=== PATIENT | male | born 1955 | race Caucasian/White ===

== ENCOUNTER 2017-03-21 19:25 | Inpatient (IN) | payer OTHER ==
[2017-03-21] MEDS: CEFTRIAXONE 1 GM/50 ML (PMX) 50 ML IVPB (22:03)
[2017-03-21] MEDS: IBUPROFEN 600 MG TAB PO (22:03)
[2017-03-21] MEDS: SODIUM CHLORIDE 0.9% 1L BAG IV* (22:04)
[2017-03-21 22:07] LABS: WHITE BLOOD COUNT 11.8 10^3/ul (4.8-10.8)
[2017-03-21 22:07] LABS: ABNORMAL IP MESSAGE 1; HEMATOCRIT 41.5 % (42.0-52.0); HEMOGLOBIN 14.1 g/dl (14.0-18.0); MEAN CORPUSCULAR HEMOGLOBIN 29.4 pg (29.0-33.0); MEAN CORPUSCULAR VOLUME 86.6 fl (82.0-101.0); PLATELET COUNT 221 10^3/UL (140-415); POSITIVE DIFF @See below; RED BLOOD COUNT 4.79 10^6/ul (4.70-6.10)
[2017-03-21 22:10] LABS: ADD MAN DIFF? YES
[2017-03-21 22:24] LABS: INR 1.06; PARTIAL THROMBOPLASTIN TIME 25.2 Sec (25.0-35.0); PROTIME 13.9 Sec (11.9-14.9); PT RATIO 1.1
[2017-03-21 22:35] LABS: ALANINE AMINOTRANSFERASE 59 IU/L (13-69); ALBUMIN 4.9 g/dl (3.3-4.9); ALBUMIN/GLOBULIN RATIO 1.58; ALKALINE PHOSPHATASE 74 IU/L (42-121); ANION GAP 16 (8-16); ASPARTATE AMINO TRANSFERASE 31 IU/L (15-46); BILIRUBIN,INDIRECT 0.3 mg/dl (0-1.1); BILIRUBIN,TOTAL 0.3 mg/dl (0.2-1.3); BLOOD UREA NITROGEN 15 mg/dl (7-20); CALCIUM 8.8 mg/dl (8.4-10.2); CARBON DIOXIDE 25 mmol/L (21-31); CHLORIDE 99 mmol/L (97-110); CREATININE 1.12 mg/dl (0.61-1.24); GLUCOSE 171 mg/dl (70-220); LIPASE 44 U/L (23-300); POTASSIUM 4.5 mmol/L (3.5-5.1); SODIUM 135 mmol/L (135-144)
[2017-03-21 22:38] LABS: BAND NEUTROPHILS #M 1.8 10^3/ul (0.0-0.6); BAND NEUTROPHILS % (M) 16 % (0-4); EOSINOPHILS % (M) 1 % (0-7); LYMPHOCYTES #M 0.1 10^3/ul (0.8-2.9); LYMPHOCYTES % (M) 1 % (15-51); MONOCYTE #M 0.4 10^3/ul (0.3-0.9); MONOCYTES % (M) 4 % (0-11); PLATELET ESTIMATE NORMAL; POLYCHROMASIA 1+ (0-0); SEG NEUT #M 9.4 10^3/ul (1.7-7.5); SEGMENTED NEUTROPHILS (M) % 78 % (39-77)
[2017-03-21 22:49] LABS: LACTIC ACID 2.2 mmol/L (0.5-2.0)
[2017-03-21 22:50] LABS: TROPONIN-I < 0.012 ng/ml (0.00-0.12)
[2017-03-21] MEDS: OSELTAMIVIR 75 MG CAP PO (23:00)
[2017-03-21] MEDS ORDERED: SOD CHLORIDE 0.9% 1,000 ML IV (23:18)
[2017-03-21] MEDS ORDERED: ONDANSETRON 4 MG INJ IV (23:30)
[2017-03-21] MEDS ORDERED: ACETAMINOPHEN 325 MG TAB PO (23:30)
[2017-03-21 23:57] LABS: ADD UMIC NO; UR ASCORBIC ACID NEGATIVE (NEGATIVE); UR BILIRUBIN (Dip) NEGATIVE (NEGATIVE); UR BLOOD (Dip) NEGATIVE (NEGATIVE); UR CLARITY CLEAR (CLEAR); UR COLOR YELLOW (YELLOW); UR GLUCOSE (Dip) NEGATIVE (NEGATIVE); UR KETONES (Dip) NEGATIVE (NEGATIVE); UR LEUKOCYTE ESTERASE (Dip) NEGATIVE Leu/ul (NEGATIVE); UR NITRITE (Dip) NEGATIVE (NEGATIVE); UR SPECIFIC GRAVITY (Dip) 1.006 (1.003-1.030); UR TOTAL PROTEIN (Dip) NEGATIVE (NEGATIVE); UR UROBILINOGEN (Dip) NEGATIVE (NEGATIVE)
[2017-03-22] MEDS: AZITHROMYCIN 500MG/NS (PMX) 250 ML IVPB
[2017-03-22 00:28] LABS: LACTIC ACID 1.8 mmol/L (0.5-2.0)
[2017-03-22] MEDS: SOD CHLORIDE 0.45% 1,000 ML IV ×2 (02:30→12:30)
[2017-03-22] MEDS ORDERED: ERGOCALCIFEROL 50,000 UNIT CAP PO (02:30)
[2017-03-22 08:03] LABS: ADD MAN DIFF? NO
[2017-03-22 08:18] LABS: WHITE BLOOD COUNT 11.1 10^3/ul (4.8-10.8)
[2017-03-22 08:18] LABS: BASOPHILS % 0.1 % (0.0-2.0); HEMATOCRIT 35.8 % (42.0-52.0); HEMOGLOBIN 12.4 g/dl (14.0-18.0); LYMPHOCYTES # 0.9 10^3/ul (0.8-2.9); LYMPHOCYTES % 8.3 % (15.0-51.0); MEAN CORPUSCULAR HGB CONC 34.6 g/dl (32.0-37.0); MEAN CORPUSCULAR VOLUME 86.5 fl (82.0-101.0); MEAN PLATELET VOLUME 11.1 fl (7.4-10.4); MONOCYTE # 0.7 10^3/ul (0.3-0.9); MONOCYTES % 6.5 % (0.0-11.0); NEUTROPHIL # 9.5 10^3/ul (1.6-7.5); NEUTROPHILS % 84.9 % (39.0-77.0); PLATELET COUNT 192 10^3/UL (140-415); RED BLOOD COUNT 4.14 10^6/ul (4.70-6.10); RED CELL DISTRIBUTION WIDTH 13.1 % (11.5-14.5)
[2017-03-22 08:36] LABS: ANION GAP 16 (8-16); BLOOD UREA NITROGEN 13 mg/dl (7-20); CALCIUM 8.5 mg/dl (8.4-10.2); CARBON DIOXIDE 23 mmol/L (21-31); CHLORIDE 107 mmol/L (97-110); CREATININE 0.84 mg/dl (0.61-1.24); GLUCOSE 130 mg/dl (70-220); POTASSIUM 4.1 mmol/L (3.5-5.1); SODIUM 142 mmol/L (135-144)
[2017-03-22 09:06] LABS: THYROID STIMULATING HORMONE 0.125 MIU/L (0.465-4.680)
[2017-03-22] MEDS: OSELTAMIVIR 75 MG CAP PO (11:39)
[2017-03-22] MEDS: FAMOTIDINE 20 MG TAB PO (11:39)
[2017-03-22] MEDS: ASPIRIN (EC) 81 MG TAB PO (11:39)
[2017-03-22] MEDS: AMLODIPINE 5 MG TAB PO (11:40)
[2017-03-22] MEDS: FENOFIBRATE 145 MG TAB PO (11:40)
[2017-03-22] MEDS: ENOXAPARIN 40 MG/0.4 ML SYG SC (11:50)
[2017-03-22] MEDS: ACETAMINOPHEN 325 MG TAB PO (12:09)
[2017-03-22] MEDS ORDERED: ATORVASTATIN 80 MG TAB PO (21:00)
[2017-03-24] MEDS ORDERED: ERGOCALCIFEROL 50,000 UNIT CAP PO (09:00)
== END 2017-03-22 19:38 | disposition home or self-care (01) | DRG 312 ==
LOC: TEL 03-22 00:21 → E/R 19:25
DX: R55 Syncope and collapse (principal); J09.X2 Influenza due to identified novel influenza A virus with other respiratory manifestations; I10 Essential (primary) hypertension; E86.0 Dehydration; I25.10 Atherosclerotic heart disease of native coronary artery without angina pectoris; Z95.1 Presence of aortocoronary bypass graft; E11.9 Type 2 diabetes mellitus without complications; E78.5 Hyperlipidemia, unspecified; Z79.82 Long term (current) use of aspirin
CPT/HCPCS: 36415; 71010; 80048; 80053; 81003; 83605; 83690; 84443; 84484; 85025; 85610; 85730; 87040; 87086; 87400; 93005; 93306; 93880; 96374; 96375; 99285-25

== ENCOUNTER 2018-10-08 02:21 | Emergency (ER) | payer MEDICARE, OTHER ==
[2018-10-08] MEDS: MECLIZINE 12.5 MG TAB PO (03:45)
== END 2018-10-08 05:28 | disposition home or self-care (01) ==
LOC: FTE 02:21
DX: H81.10 Benign paroxysmal vertigo, unspecified ear (principal); I10 Essential (primary) hypertension; Z79.82 Long term (current) use of aspirin; Z86.73 Personal history of transient ischemic attack (TIA), and cerebral infarction without residual deficits; Z98.61 Coronary angioplasty status
CPT/HCPCS: 70450; 99284-25